=== PATIENT | female | born 2000 | race Caucasian/White ===

== ENCOUNTER 2023-01-26 19:58 | Outpatient (REF) | payer OTHER, SELFPAY ==
--- OUTSIDE RECORDS SUMMARY | 2023-01-27 10:11 | XMS_ITS | CCD ---
Author Name Unknown Address [address] [place] [address] Organization [facility] Care Team Providers Care Ios Architect Name Role Phone Kurt Cisneros Primary Care Physician [phone] VANCE, DR HERNANDEZ Admitting Unavailable VANCE, DR HERNANDEZ Attending Unavailable BLAYNE, DR HARTMAN Primary Care Unavailable VANCE, DR HERNANDEZ Consulting Unavailable BYRNEDALE, DR HARTMAN Admitting Unavailable BYRNEDALE, DR HARTMAN Attending Unavailable BYRNEDALE, DR HARTMAN Primary Care Unavailable BYRNEDALE, DR HARTMAN Consulting Unavailable Lauri Cohen Attending Unavailable Lauri Cohen Attending Unavailable Allergies Allergy Classification Reported Allergen(s) Allergy Type Date of Onset Reaction(s) Facility (4 sources) Sulfamethoxazole / Trimethoprim; Translations: [sulfamethoxazole-tr imethoprim] Drug Allergy Unknown (qualifier value) [facility] (1 source) Sulfamethoxazole / Trimethoprim Drug Allergy 0 [facility] Repository Medications Current Medications Medication Drug Class(es) Dates Sig (Normalized) Sig (Original) ciprofloxacin 3 mg/ml ophthalmic solution (1 source) Quinolone Antimicrobial Start: 01-06-2023 End: 01-11-2023 take 2 drop(s) into the eye(s) every six hours ciprofloxacin Opth 0.3% Bernice 2 drop(s), OPTH, q6hr for 5 day(s), 10 mL, Refill(s) 0, to the effected eye while awake, [facility], 162, cm, 01/06/23 10:12:00 EST, Height/Length Dosing, 110, kg, 01/06/23 10:12:00 EST, Weight Dosing Start Date: 01/06/23 Stop Date: 01/11/23 Status: Ordered dextromethorphan hydrobromide 15 mg / guaiFENesin 400 mg / pseudoephedrine hydrochloride 60 mg oral tablet (1 source) alpha-Adrenergic Agonist, Uncompetitive Y-fscuvf-X-asparta te Receptor Antagonist, Sigma-1 Agonist Start: 01-06-2023 take 1 tablet by mouth every six hours dextromethorphan/g uaiFENesin/pseudoe phedrine 15 mg-400 mg-60 mg oral tablet 1 tab(s), Oral, q6hr, 15 tab(s), Refill(s) 0, Pharmacist may substitute for similar if not available, [facility], 162, cm, 01/06/23 10:12:00 EST, Height/Length Dosing, 110, kg, 01/06/23 10:12:00 EST, Weight Dosing Start Date: 01/06/23 Status: Ordered Zofran ODT 4 mg Tab-Dis (1 source) Start: 07-13-2022 End: 07-16-2022 take 1 tablet by mouth every eight hours as needed for nausea Zofran ODT 4 mg Tab-Dis 4 mg = 1 tab(s), Oral, q8hr, PRN Nausea/Vomiting, X 3 day(s), # 9 tab(s), Refills(s) 0, Pharmacy: [facility], 162, cm, 07/13/22 10:40:00 EDT, Height/Length Dosing, 112, kg, 07/13/22 10:40:00 EDT, Weight Dosing Start Date: 07/13/22 Stop Date: 07/16/22 Status: Ordered Problems Active Problems Problem Classification Problem Date Documented Da te Episodic/Chronic Immunizations and screening for infectious disease (1 source) Contact with and (suspected) exposure to infections with a predominantly sexual mode of transmission; Translations: [CONTCT W EXPOS INFECT SEXUAL TRNSMS] Onset: 12-17-2021 Episodic Inflammation; infection of eye (except that caused by tuberculosis or sexually transmitteddisease) (1 source) Conjunctivitis; Translations: [Unspecified conjunctivitis] Onset: 01-06-2023 Episodic Other female genital disorders (4 sources) Other specified noninflammatory disorders of vagina; Translations: [OTH SPEC NONINFLAMMATORY D/O VAGINA] Onset: 12-14-2021 Episodic Other gastrointestinal disorders (1 source) Diarrhea; Translations: [Diarrhea, unspecified] Onset: 07-13-2022 Episodic Other lower respiratory disease (1 source) Cough; Translations: [Cough, unspecified] Onset: 01-06-2023 Episodic Other nutritional; endocrine; and metabolic disorders (1 source) Morbid obesity; Translations: [Morbid (severe) obesity due to excess calories] Onset: 07-13-2022 Chronic Other nutritional; endocrine; and metabolic disorders (1 source) Body mass index 40+ - severely obese; Translations: [Body mass index (BMI) 40.0-44.9, adult] Onset: 07-13-2022 Chronic Other upper respiratory infections (1 source) Acute upper respiratory infection; Translations: [Acute upper respiratory infection, unspecified] Onset: 07-13-2022 Episodic Unclassified (3 sources) CONTACT W/AND (SUSP) EXPOS COVID-19; Translations: [CONTACT W/AND (SUSP) EXPOS COVID-19] Onset: 12-19-2021 Past or Other Problems Problem Classification Problem Date Documented Da te Episodic/Chronic Unclassified (1 source) Exposure to 2019 novel coronavirus; Translations: [Contact with and (suspected) exposure to COVID19] Unclassified (1 source) CONTACT W/AND (SUSP) EXPOS COVID-19; Translations: [CONTACT W/AND (SUSP) EXPOS COVID-19] Onset: 12-15-2021 Results Test Name Value Interpretation Reference Range [facility] Family Medicine Office/Clini c Noteon 01-06-2023 Family Medicine Office/Clinic Note Chief Complaint congestion and possible pink eye HPI Staff 22 yr old female here for pink eye. pt states left eye was crusted shut this morning. Redness and itching this morning. pt also states cough and congestion Symptoms started- Tuesday Headache- no Body aches- yes Earache- mild Runny/stuffy nose- yes Problem with Smell- no Problem with Taste- no Sore throat- yes Cough- yes Scratchy tickly throat- yes Chest symptoms- no Lung Hx asthma, bronchitis, chest colds- no Fever/chills- no GI symptoms- no COVID exposure- no History of Present Illness Portions of this record may have been created with voice recognition artificial intelligence software, specifically [employer], [employer] and or Dragon Ambient Experience. Substitutions may have occurred due to the inherent limitations of voice recognition and artificial intelligence software. Staff hpi reviewed. Patient is a 22 yoF complaint of redness and itching to the left eye. States began today. Pt does wear glasses. No blurred vision double vision or change in vision. Patient also with cough and congestion. Patient has no other complaints or concerns. Patient with septra allergies. Review of Systems PHQ Score Initial Depression Screen Score: 0 SCORE Physical Exam Vitals & Measurements T: 36.8 ?C(Temporal Artery) HR: 88(Peripheral) BP: 116/78 SpO2: 99% HT: 64 in HT: 162 cm WT: 110 kg WT: 242 lb BMI: 41.91 General - alert no acute distress Skin - warm dry Head -normocephalic atraumatic Eye - PERRL, EOMI, erythematous left conjunctiva with discharge Cardiovascular - regular rate regular rhythm, no murmur, normal peripheral perfusion Respiratory - lungs clear to auscultation, nonlabored respirations, breath sounds equal Lymphatics - no lymphadenopathy Assessment/Plan 1. Conjunctivitis (H10.9: Unspecified conjunctivitis) Exam consistent with bacterial conjunctivitis. Will treat with antibiotic drops. Finish course. Discussed contagious nature, avoid touching eyes. May use warm washcloth to remove drainage or crusting. Prescription for cough medicine has also been provided. Advised conjunctivitis is less contagious after 24 hours of antibiotic drops. Follow up with PCP or eye doctor if not improving over next 3 days. Patient/parent verbalized understanding of treatment plan Ordered: ciprofloxacin ophthalmic, 2 drop(s), OPTH, q6hr for 5 day(s), 10 mL, Refill(s) 0, to the effected eye while awake, [facility], 162, cm, 01/06/23 10:12:00 EST, Height/Length Dosing, 110, kg, 01/06/23 10:12:00 EST, Weight Dosing dextromethorphan/guai fenesin/pseudoephedri ne, 1 tab(s), Oral, q6hr, 15 tab(s), Refill(s) 0, Pharmacist may substitute for similar if not available, [facility], 162, cm, 01/06/23 10:12:00 EST, Height/Length Dosing, 110, kg, 01/06/23 10:12:00 EST, Weight Dosing 2. Cough (R05.9: Cough, unspecified) Same as above. Follow-up With When Contact Information Kurt Cisneros DO [address] [place] [address]- Additional Instructions: Patient Education Bacterial Conjunctivitis, Adult Problem List/Past Medical History Ongoing No qualifying data Historical No qualifying data Procedure/Surgical History Cholecystectomy (2019), section. Medications ciprofloxacin Opth 0.3% Bernice, 2 drop(s), OPTH, q6hr dextromethorphan/guai FENesin/pseudoephedri ne 15 mg-400 mg-60 mg oral tablet, 1 tab(s), Oral, q6hr Allergies Septra (Unknown) Social History Alcohol - Denies Alcohol Use, 02/05/2021 Substance Abuse - Denies Substance Abuse, 02/05/2021 Tobacco - Denies Tobacco Use, 02/05/2021 Never (less than 100 in lifetime) Tobacco Use:. Never Smokeless Tobacco Use:., 01/06/2023 Family History Diabetes mellitus type 2: Mother. Immunizations Vaccine Date Status meningococcal conjugate vaccine 09/19/2018 Given diphtheria/pertussis, acel/tetanus adult 04/24/2013 Recorded meningococcal conjugate vaccine 04/24/2013 Recorded varicella virus vaccine 03/02/2006 Recorded measles/mumps/rubella virus vaccine 03/02/2006 Recorded poliovirus vaccine, inactivated 03/02/2006 Recorded diphtheria/pertussis, acel/tetanus ped 03/02/2006 Recorded influenza virus vaccine, inactivated 11/21/2003 Recorded poliovirus vaccine, inactivated 11/21/2003 Recorded poliovirus vaccine, inactivated 08/01/2002 Recorded diphtheria/pertussis, acel/tetanus ped 08/01/2002 Recorded measles/mumps/rubella virus vaccine 05/04/2002 Recorded haemophilus b conjugate (HbOC) vaccine 05/04/2002 Recorded varicella virus vaccine 02/09/2002 Recorded haemophilus b conjugate (HbOC) vaccine 2001 Recorded diphtheria/pertussis, acel/tetanus ped 2001 Recorded hepatitis B adult vaccine 2001 Recorded poliovirus vaccine, inactivated 2001 Recorded haemophilus b conjugate (HbOC) vaccine 2001 Recorded diphtheria/pertussis, acel/tetanus ped 2001 Recorded hepatitis B adult vaccine 2001 Rec (more content not included)... Normal [facility] Comment on above: Result Comment: Elec tronically Signed By: Michael Pedro PA-C, V.\.br\Date and Time Signed: 01/06/23 10:53 EST Patient Educationon 01-07-20 Patient Education Infectious Disease Bacterial Conjunctivitis, Adult Bacterial conjunctivitis is an infection of the clear membrane that covers the white part of the eye and the inner surface of the eyelid (conjunctiva). When the blood vessels in the conjunctiva become inflamed, the eye becomes red or pink. The eye often feels irritated or itchy. Bacterial conjunctivitis spreads easily from person to person (is contagious). It also spreads easily from one eye to the other eye. What are the causes? This condition is caused by bacteria. You may get the infection if you come into close contact with: ? A person who is infected with the bacteria. ? Items that are contaminated with the bacteria, such as a face towel, contact lens solution, or eye makeup. What increases the risk? You are more likely to develop this condition if: ? You are exposed to other people who have the infection. ? You wear contact lenses. ? You have a sinus infection. ? You have had a recent eye injury or surgery. ? You have a weak body defense system (immune system). ? You have a medical condition that causes dry eyes. What are the signs or symptoms? Symptoms of this condition include: ? Thick, yellowish discharge from the eye. This may turn into a crust on the eyelid overnight and cause your eyelids to stick together. ? Tearing or watery eyes. ? Itchy eyes. ? Burning feeling in your eyes. ? Eye redness. ? Swollen eyelids. ? Blurred vision. How is this diagnosed? This condition is diagnosed based on your symptoms and medical history. Your health care provider may also take a sample of discharge from your eye to find the cause of your infection. How is this treated? This condition may be treated with: ? Antibiotic eye drops or ointment to clear the infection more quickly and prevent the spread of infection to others. ? Antibiotic medicines taken by mouth (orally) to treat infections that do not respond to drops or ointments or that last longer than 10 days. ? Cool, wet cloths (cool compresses) placed on the eyes. ? Artificial tears applied 2?6 times a day. Follow these instructions at home: Medicines ? Take or apply your antibiotic medicine as told by your health care provider. Do not stop using the antibiotic, even if your condition improves, unless directed by your health care provider. ? Take or apply zzgh-zeg-dnazrpa and prescription medicines only as told by your health care provider. ? Be very careful to avoid touching the edge of your eyelid with the eye-drop bottle or the ointment tube when you apply medicines to the affected eye. This will keep you from spreading the infection to your other eye or to other people. Managing discomfort ? Gently wipe away any drainage from your eye with a warm, wet washcloth or a cotton ball. ? Apply a clean, cool compress to your eye for 10?20 minutes, 3?4 times a day. General instructions ? Do not wear contact lenses until the inflammation is gone and your health care provider says it is safe to wear them again. Ask your health care provider how to sterilize or replace your contact lenses before you use them again. Wear glasses until you can resume wearing contact lenses. ? Avoid wearing eye makeup until the inflammation is gone. Throw away any old eye cosmetics that may be contaminated. ? Change or wash your pillowcase every day. ? Do not share towels or washcloths. This may spread the infection. ? Wash your hands often with soap and water for at least 20 seconds and especially before touching your face or eyes. Use paper towels to dry your hands. ? Avoid touching or rubbing your eyes. ? Do not drive or use heavy machinery if your vision is blurred. Contact a health care provider if: ? You have a fever. ? Your symptoms do not get better after 10 days. Get help right away if: ? You have a fever and your symptoms suddenly get worse. ? You have severe pain when you move your eye. ? You have facial pain, redness, or swelling. ? You have a sudden loss of vision. Summary ? Bacterial conjunctivitis is an infection of the clear membrane that covers the white part of the eye and the inner surface of the eyelid (conjunctiva). ? Bacterial conjunctivitis spreads easily from eye to eye and from person to person (is contagious). ? Wash your hands often with soap and water for at least 20 seconds and especially before touching your face or eyes. Use paper towels to dry your hands. ? Take or apply your antibiotic medicine as told by your health care provider. Do not stop using the antibiotic even if your condition improves. ? Contact a health care provider if you have a fever or if your symptoms do not get better after 10 days. Get help right away if you have a sudden loss of vision. This information is not intended to replace advice given to you by your health care provider. Make sure you discuss any questions you have with your healt (more content not included)... Normal [facility] Patient Letter FTon 2022 Patient [place] [facility] [address], [facility] [place] [address] January 06, 2023 WILLIAMS HENRIQUEZ [address] [address] : 2000 Please excuse WILLIAMS HENRIQUEZ from work . Date and/or Time of Absence: From: 01/06 To: 01/08 May return to work on: 01/09 Restrictions: None Comments: Please excuse due to an acute illness. Provider Signature: Bryon Pedro PA-C [facility] [address]. [facility] [place] [address] [facility] Ambulatory Visit Summaryon 0 07-13-2022 Ambulatory Visit Summary WILLIAMS HENRIQUEZ :2000 Visit Date:07/13/2022 Ambulatory Visit Instructions Your Diagnosis Viral URI Diarrhea BMI 40.0-44.9, adult Morbid obesity Your Care Team Attending Physician - Lauri Cohen PA-C Primary Care Physician - Kurt Cisneros DO This Is Your Medications List ondansetron (Zofran ODT 4 mg Tab-Dis) Procedures Performed Cholecystectomy (2019), section. Discharge Vitals Temperature (Oral) 37.6 ?C Heart Rate (Peripheral) 112 Blood Pressure 108/62 Height 162 cm Height 64 in Weight 112 kg Weight 246.4 lb BMI 42.68 What to do next You Need to Schedule the Following Appointments Follow Up with Kurt Cisneros DO When: Where: [address] [place] [address]- Medications What How Much When Why Instructions New ondansetron (Zofran ODT 4 mg Tab-Dis) 1 Tablets By Mouth Every 8 hours as needed for Nausea/Vomiting Viral URI Diarrhea Duration: 3 Days Pickup at [facility] Pharmacy Information [facility] 1986: [address] [place], [place] [id number] [phone] Allergies Septra (Unknown) Education Materials BMI for Adults What is BMI? Body mass index (BMI) is a number that is calculated from a person's weight and height. BMI can help estimate how much of a person's weight is composed of fat. BMI does not measure body fat directly. Rather, it is an alternative to procedures that directly measure body fat, which can be difficult and expensive. BMI can help identify people who may be at higher risk for certain medical problems. What are BMI measurements used for? BMI is used as a screening tool to identify possible weight problems. It helps determine whether a person is obese, overweight, a healthy weight, or underweight. BMI is useful for: ? Identifying a weight problem that may be related to a medical condition or may increase the risk for medical problems. ? Promoting changes, such as changes in diet and exercise, to help reach a healthy weight. BMI screening can be repeated to see if these changes are working. How is BMI calculated? BMI involves measuring your weight in relation to your height. Both height and weight are measured, and the BMI is calculated from those numbers. This can be done either in [place] or metric measurements. Note that charts and online BMI calculators are available to help you find your BMI quickly and easily without having to do these calculations yourself. To calculate your BMI in [place] measurements: 1. Measure your weight in pounds (lb). 2. Multiply the number of pounds by 703. ? For example, for a person who weighs 180 lb, multiply that number by 703, which equals 126,540. 3. Measure your height in inches. Then multiply that number by itself to get a measurement called inches squared. ? For example, for a person who is 70 inches tall, the inches squared measurement is 70 inches x 70 inches, which equals 4,900 inches squared. 4. Divide the total from step 2 (number of lb x 703) by the total from step 3 (inches squared): 126,540 ? 4,900 = 25.8. This is your BMI. To calculate your BMI in metric measurements: 1. Measure your weight in kilograms (kg). 2. Measure your height in meters (m). Then multiply that number by itself to get a measurement called meters squared. ? For example, for a person who is 1.75 m tall, the meters squared measurement is 1.75 m x 1.75 m, which is equal to 3.1 meters squared. 3. Divide the number of kilograms (your weight) by the meters squared number. In this example: 70 ? 3.1 = 22.6. This is your BMI. What do the results mean? BMI charts are used to identify whether you are underweight, normal weight, overweight, or obese. The following guidelines will be used: ? Underweight: BMI less than 18.5. ? Normal weight: BMI between 18.5 and 24.9. ? Overweight: BMI between 25 and 29.9. ? Obese: BMI of 30 or above. Keep these notes in mind: ? Weight includes both fat and muscle, so someone with a muscular build, such as an athlete, may have a BMI that is higher than 24.9. In cases like these, BMI is not an accurate measure of body fat. ? To determine if excess body fat is the cause of a BMI of 25 or higher, further assessments may need to be done by a health care provider. ? BMI is usually interpreted in the same way for men and women. Where to find more information For more information about BMI, including tools to quickly calculate your BMI, go to these websites: ? Centers for Disease Control and Prevention: www.cdc.gov ? [place] Heart Association: www.heart.org ? National Heart, Lung, and Blood [place]: www.nhlbi.nih.gov Summary ? Body mass index (BMI) is a number that is calculated from a person's weight and height. ? BMI may help estimate how much of a person's weight is composed of fat. BMI can help identify those (more content not included)... Normal [facility] Family Medicine Office/[place] [place] 07-13-2022 Family Medicine Office/Clinic Note Chief Complaint Fatigue HPI Staff Williams is a 22 y.o. female here exhaustion She states she was at work yesterday and felt extremely nausea without vomiting. She has body aches and dizziness. She state loss of appetite the last two days. She Has diarrhea. She denies abdominal pain other than cramping from starting menses. She has a cough that is productive and runny nose She states she feels warm but no confirmed temperature She denies sharp sore throat or headache related to sickness. Throat is irritated from coughing. 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 Portions of this record have been created with voice recognition software. Occasional wrong-word or ?cinhn-i-rssc? substitutions may have occurred due to the inherent limitations of voice recognition software. 22 yo female presents today with cc of exhaustion. Pt states she was at work yesterday and felt extremely nauseated. Denies vomiting. She states body aches and dizziness. Loss of appetite x 2 days. She states she has had diarrhea, denies abdominal pain. She has started her menstrual cycle. Denies chance of . States she does get diarrhea, with her menses, but feels it is related to a possible virus. She notes a runny nose, and cough, cough is occasionally productive of phlegm. Denies any headache or sore throat. No recent illness, or travel. Did not test at home for covid. Denies exposure that she is aware of. She is around small children, as she works a [employer]. She took tylenol yesterday with some relief. Pt states she would have just stayed, home but she needs a work note. Review of Systems PHQ Score Initial Depression Screen Score: 1 Physical Exam Vitals & Measurements T: 37.6 ?C(Oral) HR: 112(Peripheral) RR: 98 BP: 108/62 HT: 64 in HT: 162 cm WT: 112 kg WT: 246.4 lb BMI: 42.68 General: morbidly obese female, no acute distress Eyes: Pupils equal, round, and reactive to light. Conjunctivae and sclerae normal, and extraocular movements intact Ears: No deformity or lesion of external ear. Canals and TM appear normal bilaterally. TM?s intact, not inflamed, with normal light reflex. Hearing grossly normal to conversational speech Nose: No deformity, discharge, inflammation, or lesions Mouth: Mucous membranes moist. Normal oropharynx, and posterior pharynx without lesions or exudates. Tongue normal Neck: no adenopathy Lungs: clear to auscultation throughout, no wheezing, no rales. No respiratory distress Cardio: regular rate and rhythm, no murmur Abdomen: soft, nondistended, BS normal and active x4. Denies tenderness. No guarding or grimacing Musculoskeletal: not assessed Extremity: not assessed Neurologic: not assessed Skin: No rashes, ulcerations, or suspicious lesions Mental Status: Alert and oriented x3. Normal mood and affect Assessment/Plan pt was offered rapid covid testing, however declines at this time. 1. Viral URI (J06.9: Acute upper respiratory infection, unspecified) Discussed exam and hx are consistent with viral illness. Advised of typical duration. Discussed antibiotics unfortunately do not treat viral illnesses, it will take time to run course- usually 7-14 days. Fluids/rest encouraged, PRN tylenol/ibuprofen for any pain. May use mucinex for symptomatic tx. Follow up with PCP if not improving over next 7-10 days or significantly worsening symptoms. Patient and/or parent verbalized understanding of tx plan. Ordered: ondansetron, 4 mg = 1 tab(s), Oral, q8hr, PRN Nausea/Vomiting, X 3 day(s), # 9 tab(s), Refills(s) 0, Pharmacy: [facility], 162, cm, 07/13/22 10:40:00 EDT, Height/Length Dosing, 112, kg, 07/13/22 10:40:00 EDT, Weight Dosing 2. Diarrhea (R19.7: Diarrhea, unspecified) Continue bland diet such as bananas rice applesauce and toast until both tolerating normal diet continue fluid intake electrolyte beverages. A prescription for Zofran, 1 tablet dissolved under the tongue every 8 hours as needed for nausea or vomiting was sent to the pharmacy for you. Ordered: ondansetron, 4 mg = 1 tab(s), Oral, q8hr, PRN Nausea/Vomiting, X 3 day(s), # 9 tab(s), Refills(s) 0, Pharmacy: [facility], 162, cm, 07/13/22 10:40:00 EDT, Height/Length Dosing, 112, kg, 07/13/22 10:40:00 EDT, Weight Dosing 3. BMI 40.0-44.9, adult (Z68.41: Body mass index [BMI] 40.0-44.9, adult) The standard range for ages 18 and older is >=18.5 and < 25 kg/m2. Your BMI today was above this range, this falls in the overweight to obese category and there are medical benefits to weight loss. We can offer counselling, referral, and/or medical support in addressing this problem. Your BMI and weight management will be followed at subsequent visits. 4. Morbid obesity (E66.01: Morbid (severe) obesity due to excess calories) Discussed healthy diet an (more content not included)... Normal [facility] Comment on above: Result Comment: Elec tronically Signed By: Noel MELARA, Lauri Rock\.br\Date and Time Signed: 07/13/22 10:59 EDT Patient Educationon 07-14-19 Patient Education Infectious Disease Diarrhea, Adult Diarrhea is frequent loose and watery bowel movements. Diarrhea can make you feel weak and cause you to become dehydrated. Dehydration can make you tired and thirsty, cause you to have a dry mouth, and decrease how often you urinate. Diarrhea typically lasts 2?3 days. However, it can last longer if it is a sign of something more serious. It is important to treat your diarrhea as told by your health care provider. Follow these instructions at home: Eating and drinking Follow these recommendations as told by your health care provider: ? Take an oral rehydration solution (ORS). This is an cnjw-wzz-rwwussr medicine that helps return your body to its normal balance of nutrients and water. It is found at pharmacies and retail stores. ? Drink plenty of fluids, such as water, ice chips, diluted fruit juice, and low-calorie sports drinks. You can drink milk also, if desired. ? Avoid drinking fluids that contain a lot of sugar or caffeine, such as energy drinks, sports drinks, and soda. ? Eat bland, ipcb-qm-tqzszo foods in small amounts as you are able. These foods include bananas, applesauce, rice, lean meats, toast, and crackers. ? Avoid alcohol. ? Avoid spicy or fatty foods. Medicines ? Take ifmo-ehz-ndiovxa and prescription medicines only as told by your health care provider. ? If you were prescribed an antibiotic medicine, take it as told by your health care provider. Do not stop using the antibiotic even if you start to feel better. General instructions ? Wash your hands often using soap and water. If soap and water are not available, use a hand artist blacksmith. Others in the household should wash their hands as well. Hands should be washed: ? After using the toilet or changing a diaper. ? Before preparing, cooking, or serving food. ? While caring for a sick person or while visiting someone in a hospital. ? Drink enough fluid to keep your urine pale yellow. ? Rest at home while you recover. ? Watch your condition for any changes. ? Take a warm bath to relieve any burning or pain from frequent diarrhea episodes. ? Keep all follow-up visits as told by your health care provider. This is important. Contact a health care provider if: ? You have a fever. ? Your diarrhea gets worse. ? You have new symptoms. ? You cannot keep fluids down. ? You feel light-headed or dizzy. ? You have a headache. ? You have muscle cramps. Get help right away if: ? You have chest pain. ? You feel extremely weak or you faint. ? You have bloody or black stools or stools that look like tar. ? You have severe pain, cramping, or bloating in your abdomen. ? You have trouble breathing or you are breathing very quickly. ? Your heart is beating very quickly. ? Your skin feels cold and clammy. ? You feel confused. ? You have signs of dehydration, such as: ? Dark urine, very little urine, or no urine. ? Cracked lips. ? Dry mouth. ? Sunken eyes. ? Sleepiness. ? Weakness. Summary ? Diarrhea is frequent loose and sometimes watery bowel movements. Diarrhea can make you feel weak and cause you to become dehydrated. ? Drink enough fluids to keep your urine pale yellow. ? Make sure that you wash your hands after using the toilet. If soap and water are not available, use hand artist blacksmith. ? Contact a health care provider if your diarrhea gets worse or you have new symptoms. ? Get help right away if you have signs of dehydration. This information is not intended to replace advice given to you by your health care provider. Make sure you discuss any questions you have with your health care provider. Document Revised: 08/05/2021 Document Reviewed: 08/05/2021 [employer] Patient Education ? 2022 [employer] Upper Respiratory Infection, Adult An upper respiratory infection (URI) is a common viral infection of the nose, throat, and upper air passages that lead to the lungs. The most common type of URI is the common cold. URIs usually get better on their own, without medical treatment. What are the causes? A URI is caused by a virus. You may catch a virus by: ? Breathing in droplets from an infected person's cough or sneeze. ? Touching something that has been exposed to the virus (is contaminated) and then touching your mouth, nose, or eyes. What increases the risk? You are more likely to get a URI if: ? You are very young or very old. ? You have close contact with others, such as at work, school, or a health care facility. ? You smoke. ? You have long-term (chronic) heart or lung disease. ? You have a weakened disease-fighting system (immune system). ? You have nasal allergies or asthma. ? You are experiencing a lot of stress. ? You have poor nutrition. What are the signs or symptoms? A URI usually involves some of the following symptoms: ? Runny or stuffy (congested) nose. ? (more content not included)... Normal [facility] Patient Letter FTon 2022 Patient [place] [facility] [address], [place] [address] [phone] July 13, 2022 WILLIAMS HENRIQUEZ [address] [place] [address] : 2000 Please excuse WILLIAMS HENRIQUEZ from work . Date and/or Time of Absence: From: 07/12/2022 To: 07/14/2022 May return to work on: 07/14/2022 Restrictions: None Comments: Please excuse due to an acute illness. Provider Signature: Lauri Cohen PA-C Physician Water Purifier [address] [place] [address] [place] [address] [facility] CHLAMYDIA/GONOCOCCUS GREGORY (SW AB/URINE/PAPon 12-15-2021 Chlamydia trachomatis, GREGORY Negative Normal Negative [facility] Comment on above: Performed By: #### C T/NGNA #### [facility] [address] [place], [place] [address] Dr. Sil Shane Neisseria gonorrhoeae, GREGORY Negative Normal Negative [facility] Comment on above: Performed By: #### C T/NGNA #### [facility] [address] [place], [place] [address] Dr. Sil Shane Covid-19 PCR (CVDTBH)on SARS-CoV-2 (COVID-19) RNA GREGORY+probe Ql (Unsp spec) Not detected Normal NOT DETECTED [facility] Comment on above: Result Comment: This test is not yet approved or cleared by the [place] FDA. When there are no FDA-approved or cleared tests available, and other criteria are met, FDA can make tests available under an emergency access mechanism called an Emergency Use Authorization (EUA). The EUA for this test is supported by the Sales Donor Recruitment Representative of Health and Human Service's (HHS's) declaration that circumstances exist to justify the emergency use of in vitro diagnostics for the detection and/or diagnosis of the virus that causes COVID-19. This EUA will remain in effect (meaning this test can be used) for the duration of the COVID-19 declaration justifying emergency of IVDs, unless it is terminated or revoked by FDA (after which the test may no longer be used). When diagnostic testing is negative, the possibility of a false negative should be considered in the context of a patient's recent exposures and the presence of clinical signs and symptoms consistent with SARS-CoV-2. Performed By: #### C VDTBH #### [facility] [address] [place], [place] [address] Dr. Sil Shane HEPATITIS PANEL, ACUTEon HBsAg Screen Negative Normal Negative [facility] Comment on above: Performed By: #### H EPACUT #### [facility] [address] [place] [address] [address] Sil Shane HCV AB <0.1 Normal 0.0-0.9 [facility] Comment on above: Performed By: #### H EPACUT #### [facility] [address] [address] [address] Sil Shane Hep A Ab, IgM Negative Normal Negative [facility] Comment on above: Performed By: #### H EPACUT #### [facility] [address] [address] [address] Sil Shane Hep B Core Ab, IgM Negative Normal Negative [facility] Comment on above: Performed By: #### H EPACUT #### [facility] [address] [address] [address] Sil Shane Interpretation: Comment Normal [facility] Comment on above: Result Comment: Nega tive Not infected with HCV, unless recent infection is suspected or other evidence exists to indicate HCV infection. Performed By: #### H EPACUT #### [facility] [address] [address] [address] Sil Shane HERPES SIMPLEX 1/2 IGGon HSV 1 IgG, Type Spec <0.91 Normal 0.00-0.90 [facility] Comment on above: Result Comment: Nega tive <0.91 Equivocal 0.91 - 1.09 Positive >1.09 Note: Negative indicates no antibodies detected to HSV-1. Equivocal may suggest early infection. If clinically appropriate, retest at later date. Positive indicates antibodies detected to HSV-1. Performed By: #### H SV IGG #### [facility] [address] [address] [address] Sil Shane HSV 2 IgG Type Spec <0.91 Normal 0.00-0.90 [facility] Comment on above: Result Comment: Nega tive <0.91 Equivocal 0.91 - 1.09 Positive >1.09 Note: Negative indicates no HSV-2 antibodies detected. Positive indicates HSV-2 antibodies detected. Equivocal and low positive HSV-2 screens (Index 0.91-5.00) may be false positive and are reflexed to supplemental testing in accordance with CDC guidelines. Performed By: #### H SV IGG #### [facility] [address] [place] [address] Dr. Sil Shane HIV 1 AND 2 WITH REFLEXon HIV Screen 4th Generation wRfx Non-Reactive Normal Non Reactive [facility] Comment on above: Result Comment: HIV Negative HIV-1/HIV-2 antibodies and HIV-1 p24 antigen were NOT detected. There is no laboratory evidence of HIV infection. Performed By: #### H IV12 #### [facility] [address] [place] [address] Dr. Sil Shane RPR QUANTon 12-15-2021 Rapid Plasma Reagin, Quant Non-Reactive Normal NonRea<1:1 [facility] Comment on above: Result Comment: Plea se Note: This test does not meet current guidelines for screening and diagnosis of syphilis. This test is intended for following treatment response in patients being treated for syphilis infection. To screen for syphilis infection, a reflex cascade that includes both RPR and a treponema-specific assay should be utilized, such as Treponema pallidum (Syphilis) Screening [place] (385189) or Rapid Plasma Reagin (RPR) Test With Reflex to Quantitative RPR and Confirmatory Treponema pallidum Antibodies (855952). Performed By: #### R PRQ #### [facility] [address] [place] [address] Dr. Sil Shane VAGINITIS/VAGINOSIS DNA PROB Andrew 12-15-2021 Lupe species Negative Normal Negative [facility] Comment on above: Performed By: #### V AGINT #### [facility] [address] [place] [address] Dr. Sil Shane Gardnerella vaginalis Negative Normal Negative [facility] Comment on above: Performed By: #### V AGINT #### [facility] [address] [place] [address] Dr. Sil Shane Trichomonas vaginalis Negative Normal Negative [facility] Comment on above: Performed By: #### V AGINT #### [facility] [address] [address] [address] Sil Shane Alkaline Phosphataseon 12-05 ALP [Catalytic activity/Vol] 42 U/L Normal 32-92 [facility] Comment on above: Performed By: #### A MY, AST, HCGQUAL, BILTD, LIPASE, ALP #### [facility] [address] [id number] [facility] Amylaseon 12-05-2020 Amylase [Catalytic activity/Vol] 54 U/L Normal 28-100 [facility] Comment on above: Performed By: #### A MY, AST, HCGQUAL, BILTD, LIPASE, ALP #### [facility] [address] Aspartate Amino Transferaseo n 12-05-2020 AST [Catalytic activity/Vol] 14 U/L Normal 10-42 [facility] Comment on above: Performed By: #### A MY, AST, HCGQUAL, BILTD, LIPASE, ALP #### [facility] [address] Bilirubin, Total and Directo n 12-05-2020 Bilirubin [Mass/Vol] 0.3 mg/dL Normal 0.3-1.2 [facility] Comment on above: Performed By: #### A MY, AST, HCGQUAL, BILTD, LIPASE, ALP #### [facility] [address] Bilirubin,Indirect Not performed Normal [facility] Comment on above: Performed By: #### A MY, AST, HCGQUAL, BILTD, LIPASE, ALP #### [facility] [address] Bilirubin.indirect [Mass/Vol] mg/dL Normal 0.0-0.4 [facility] Comment on above: Performed By: #### A MY, AST, HCGQUAL, BILTD, LIPASE, ALP #### [facility] [address] HCG,Qualitative Serumon 11-08 HCG,Qualitative Serum Negative Normal [facility] Comment on above: Result Comment: PERF ORMED BY: [facility] [address] [place] [address] PATHOLOGIST SALES ORDER PROCESSOR RADHA MILLS M.D. Performed By: #### A MY, AST, HCGQUAL, BILTD, LIPASE, ALP #### [facility] [address] [facility] [place] [address] [facility] 12-05-2020 L - -------- Specimen: [id number] Received: 12/08/20 Status: JENNIFER Reynaldo Num: [id number] Spec Type: Surgical Subm Dr: Fausto Burnett DO Tissues: A Gallbladder (GALLBLADDER) Procedures: HE Stain, Gross/Micro L3 -------- Patient Age/Sex Location Account Attending Physician -------- Williams Henriquez /F [place] [id number] Fausto Burnett DO -------- SPEC NUM: [id number] RECD: 12/08/20 STATUS: JENNIFER JACOBS NUM: [id number] JOSEFINA: 12/05/20- DR: Fausto Burnett DO ENTERED: 12/08/20 [facility] DR: SPEC TYPE: Surgical DEPT: S ORDERED: HE Stain, Gross/Micro L3 ORDERED: HE Stain, Gross/Micro L3 Pathological Diagnosis Gallbladder, cholecystectomy: - Gallbladder with no significant pathologic findings. - One benign reactive lymph node with sinus histiocytosis (0/1). - No gallstones identified Clinical Information Cholelithiasis Gross Description Received in formalin labeled with the patient's name, number and gallbladder is a 5.7 x 2.5 x 1.4 cm focally disrupted gallbladder. The serosa is whittaker-henderson and wrinkled, while the adventitia is finely roughened. The specimen is opened to reveal a whittaker, granular and flattened appearing mucosa with an average wall thickness of 0.4 cm. No lesions or choleliths are grossly identified. A 0.4 cm periductal lymph node is identified. The specimen container is filtered and no choleliths are identified. Print Traffic Manager sections are submitted in one cassette labeled A1. (SM/YJ) Microscopic Description One glass slide with H E stained material has been examined. The microscopic findings support the above pathologic diagnosis. -------- Specimen: [id number] Received: 12/08/20 Status: JENNIFER Jacobs Num: [id number] Spec Type: Surgical Subm Dr: Fausto Burnett DO Tissues: A Gallbladder (GALLBLADDER) Procedures: HE Stain, Gross/Micro L3 -------- Patient: Williams Henriquez [id number] (Continued) -------- Specimen: [id number] Received: 12/08/20 (Continued) Signed (signature on file) Elodia Raya MD 12/09/20 1528 -------- Specimen: [id number] Received: 12/08/20 Status: JENNIFER Jacobs Num: [id number] Spec Type: Surgical Subm Dr: Fausto Burnett DO Tissues: A Gallbladder (GALLBLADDER) Procedures: HE Stain, Gross/Micro L3 -------- Patient: Williams Henriquez [id number] (Continued) -------- Specimen: [id number] Received: 12/08/20 (Continued) CPT Codes 63612 -------- -------- Specimen: [id number] Received: 12/08/20 Status: JENNIFER Jacobs Num: [id number] Spec Type: Surgical Subm Dr: Fausto Burnett DO Tissues: A Gallbladder (GALLBLADDER) Procedures: HE Stain, Gross/Micro L3 -------- Patient: Williams Henriquez [id number] (Continued) -------- Signed (signature on file) Elodia Raya MD 12/09/20 1528 Normal [facility] Lipaseon 12-05-2020 Lipase [Catalytic activity/Vol] 25.0 U/L Normal 22-51 [facility] Comment on above: Performed By: #### A MY, AST, HCGQUAL, BILTD, LIPASE, ALP #### [facility] [address] [id number] [facility] COVID-19 [facility] 12-03-2020 SARS-CoV-2 (COVID-19) RNA GREGORY+probe Ql (Unsp spec) Negative Normal Negative [facility] Comment on above: Order Comment: Healt hcare Worker?: N Result Comment: Testing for SARS-CoV-2 by RT-PCR This test was developed and its performance characteristics determined by [employer]) and validated at the [facility]. This test has not been FDA cleared or approved. This test has been authorized by FDA under an Emergency Use Authorization (EUA). This test has been validated in accordance with the FDA's Guidance Document (Policy for Diagnostics Testing in Laboratories Certified to Perform High Complexity Testing under CLIA prior to Emergency Use Authorization for Coronavirus Disease-2019 during the Public Health Emergency) issued on May 10, 2019. This test is only authorized for the duration of time the declaration that circumstances exist justifying the authorization of the emergency use of in vitro diagnostic tests for detection of SARS-CoV-2 virus and/or diagnosis of COVID-19 infection under section 564(b)(1) of the Act, 21 U.S.C. 360bbb-3(b)(1), unless the authorization is terminated or revoked sooner. PERFORMED BY: [facility] [address] [id number] PATHOLOGIST SALES ORDER PROCESSOR RADHA MILLS M.D. Performed By: #### C OVID 19 [facility] #### [facility] [address] HCG,Urineon 08-26-2020 Beta HCG ( test) Ql (U) Negative Normal [facility] Comment on above: Result Comment: PERF ORMED BY: [address] [place] [address] PATHOLOGIST SALES ORDER PROCESSOR RADHA MILLS M.D. Performed By: #### U HCG #### [facility] [address] [place] [address] [place] 08-26-2020 L - -------- Specimen: [id number] Received: 08/27/20 Status: JENNIFER Jacobs Num: [id number] Spec Type: Surgical Subm Dr: Juan Antonio MD Tissues: A Duodenum - Biopsy (DUODENUM BX) Procedures: HE Stain/2, Gross/Micro L4 -------- Patient Age/Sex Location Account Attending Physician -------- CassandraWilliams M / [id number] Juan Antonio MD -------- SPEC NUM: [id number] RECD: 08/27/20 STATUS: JENNIFER JACOBS NUM: [id number] JOSEFINA: 08/26/20- SUBM DR: Juan Antonio MD ENTERED: 08/27/[address]: NOELLE TYPE: Surgical DEPT: S ENTERED BY: [id number] RECV BY: [id number] ORDERED: HE Stain/2, Gross/Micro L4 ORDERED: HE Stain/2, Gross/Micro L4 Pathological Diagnosis Duodenum, biopsy: - Duodenal mucosa with mild villous edema, no significant pathologic findings. - No villous atrophy or intraepithelial lymphocytosis identified. Clinical Information Dyspepsia Gross Description Received in formalin labeled with the patient's name, number and duodenum biopsies rule out celiac is a 0.5 cm whittaker tissue fragment. Entirely submitted in one cassette labeled A1. (SM/YJ) Microscopic Description Two glass slides with H E stained material have been examined. The microscopic findings support the above pathologic diagnosis. CPT Codes 60071 -------- -------- Specimen: [id number] Received: 08/27/20 Status: JENNIFER Jacobs Num: [id number] Spec Type: Surgical Subm Dr: Juan Antonio MD Tissues: A Duodenum - Biopsy (DUODENUM BX) Procedures: HE Stain/2, Gross/Micro L4 -------- Patient: Williams Henriquez [id number] (Continued) -------- Signed (signature on file) Elodia Raya MD 08/28/20 1503 Normal [facility] COVID-19 [facility] 08-22-2020 SARS-CoV-2 (COVID-19) RNA GREGORY+probe Ql (Unsp spec) Negative Normal Negative [facility] Comment on above: Order Comment: Healt hcare Worker?: N Result Comment: Testing for SARS-CoV-2 by RT-PCR This test was developed and its performance characteristics determined by [employer]) and validated at the [facility]. This test has not been FDA cleared or approved. This test has been authorized by FDA under an Emergency Use Authorization (EUA). This test has been validated in accordance with the FDA's Guidance Document (Policy for Diagnostics Testing in Laboratories Certified to Perform High Complexity Testing under CLIA prior to Emergency Use Authorization for Coronavirus Disease-2019 during the Public Health Emergency) issued on May 10, 2019. This test is only authorized for the duration of time the declaration that circumstances exist justifying the authorization of the emergency use of in vitro diagnostic tests for detection of SARS-CoV-2 virus and/or diagnosis of COVID-19 infection under section 564(b)(1) of the Act, 21 U.S.C. 360bbb-3(b)(1), unless the authorization is terminated or revoked sooner. PERFORMED BY: [place] [id number] PATHOLOGIST SALES ORDER PROCESSOR RADHA MILLS M.D. Performed By: #### C OVID 19 [facility] #### [address] Vital Signs Date Time Vital Sign Value Performing Clinician Facility 01-06-2023 10:09-0500 Blood Pressure Location Lauri Sainiey [facility] 01-06-2023 10:09-0500 Body temperature 98.24 [degF] Lauri AbraResto [facility] 01-06-2023 10:09-0500 Diastolic blood pressure 78 mm[Hg] Lauri Noel [facility] 01-06-2023 10:09-0500 Heart rate 88 /min Lauri AbraResto [facility] 01-06-2023 10:09-0500 SaO2% (BldA) [Mass fraction] 99 % Lauri AbraResto [facility] 01-06-2023 10:09-0500 Systolic blood pressure 116 mm[Hg] Lauri Noel [facility] 07-13-2022 10:35-0400 Blood Pressure Location Lauri Free[employer]el [facility] 07-13-2022 10:35-0400 Body temperature 99.68 [degF] Lauri Cohen [facility] 07-13-2022 10:35-0400 Diastolic blood pressure 62 mm[Hg] Lauri Cohen [facility] 07-13-2022 10:35-0400 Heart rate 112 /min Lauri Cohen [facility] 07-13-2022 10:35-0400 SaO2% (BldA) [Mass fraction] 98 % Lauri Cohen [facility] 07-13-2022 10:35-0400 Systolic blood pressure 108 mm[Hg] Lauri Cohen [facility] Encounters Encounter Date Encounter Type Care Provider Facility Start: 01-06-2023 End: 01-07-2023 ambulatory Lauri LynseyUziel Cohen Facility:[facility] Start: 01-06-2023 End: 01-06-2023 Patient encounter procedure Lauri MUziel Cohen [facility] Start: 07-13-2022 End: 07-14-2022 ambulatory Lauri LynseyUziel Cohen Facility:[facility] [place] Start: 07-13-2022 End: 07-13-2022 Patient encounter procedure Lauri MUziel Noel [facility] Start: 12-15-2021 End: 12-15-[address] KURT CISNEROS Facility:[facility] Start: 12-14-2021 End: 12-14-[address] DAVID WOODARD Facility:[facility] Start: 04-23-2021 End: 07-23-2021 Patient encounter procedure Kurt Cisneros [facility] Procedures Date Procedure Procedure Detail Performing Clinician Start: 02-07-2018 Cholecystectomy Lauri cabreraoh section Lauri levine Immunizations Immunization Date Immunization Notes Care Provider Ria fausto 09-19-2018 meningococcal polysaccharide (groups A, C, Y and W-135) diphtheria toxoid conjugate vaccine (MCV4P) [facility] 04-24-2013 meningococcal ACWY vaccine, unspecified formulation Kurt [facility] 04-24-2013 tetanus toxoid, redu carie diphtheria toxoid, and acellular pertussis vaccine, adsorbed [facility] 03-02-2006 diphtheria, tetanus toxoids and acellular pertussis vaccine [facility] 03-02-2006 measles, mumps and rubella virus vaccine Kurt [facility] 03-02-2006 poliovirus vaccine, unspecified formulation [facility] 03-02-2006 varicella virus vaccine [facility] 11-21-2003 influenza virus vacc ine, unspecified formulation Kurt [facility] 11-21-2003 poliovirus vaccine, unspecified formulation [facility] 08-01-2002 diphtheria, tetanus toxoids and acellular pertussis vaccine [facility] 08-01-2002 poliovirus vaccine, unspecified formulation [facility] 05-04-2002 haemophilus influenz ae type b vaccine, HbOC conjugate Kurt [facility] 05-04-2002 measles, mumps and rubella virus vaccine [facility] 02-09-2002 varicella virus vaccine [facility] 2001 diphtheria, tetanus toxoids and acellular pertussis vaccine [facility] 2001 haemophilus influenz ae type b vaccine, HbOC conjugate [facility] 2001 diphtheria, tetanus toxoids and acellular pertussis vaccine [facility] 2001 haemophilus influenz ae type b vaccine, HbOC conjugate [facility] 2001 hepatitis B vaccine, adult dosage [facility] 2001 poliovirus vaccine, unspecified formulation [facility] 2001 diphtheria, tetanus toxoids and acellular pertussis vaccine [facility] 2001 haemophilus influenz ae type b vaccine, HbOC conjugate [facility] 2001 hepatitis B vaccine, adult dosage [facility] 2001 poliovirus vaccine, unspecified formulation [facility] 2001 hepatitis B vaccine, adult dosage [facility] Payers Date Payer Category Payer Medicaid [id number] 2001 Unknown [id number] 2001 Unknown [id number] 2001 Unknown [id number] 2001 Unknown [id number] 1959 Unknown [id number] 1959 Unknown [id number] Social History Date Type Detail Facility Tobacco smoking status No Smokin g Status Entered [facility] Sex Assigned At Female [facility] Start: 07-13-2022 End: 01-06-2023 Tobacco smoking status Never smoked tobacco (finding) [facility] Tobacco smoking status Never [facility] Functional Status Date Assessment Result Facility 01-06-2023 Functional Status N/A [facility] 07-13-2022 Functional Status N/A [facility] Hospital Discharge instructions 01-06-2023 Note Date & Type Note Facility 01-06-2023 Hospital Discharg e instructions Patient Education 01/06/2023 10:52:21 Bacterial Conjunctivitis, Adult Bacterial Conjunctivitis, Adult Bacterial conjunctivitis is an infection of the clear membrane that covers the white part of the eye and the inner surface of the eyelid (conjunctiva). When the blood vessels in the conjunctiva become inflamed, the eye becomes red or pink. The eye often feels irritated or itchy. Bacterial conjunctivitis spreads easily from person to person (is contagious). It also spreads easily from one eye to the other eye. What are the causes? This condition is caused by bacteria. You may get the infection if you come into close contact with: A person who is infected with the bacteria. Items that are contaminated with the bacteria, such as a face towel, contact lens solution, or eye makeup. What increases the risk? You are more likely to develop this condition if: You are exposed to other people who have the infection. You wear contact lenses. You have a sinus infection. You have had a recent eye injury or surgery. You have a weak body defense system (immune system). You have a medical condition that causes dry eyes. What are the signs or symptoms? Symptoms of this condition include: Thick, yellowish discharge from the eye. This may turn into a crust on the eyelid overnight and cause your eyelids to stick together. Tearing or watery eyes. Itchy eyes. Burning feeling in your eyes. Eye redness. Swollen eyelids. Blurred vision. How is this diagnosed? This condition is diagnosed based on your symptoms and medical history. Your health care provider may also take a sample of discharge from your eye to find the cause of your infection. How is this treated? This condition may be treated with: Antibiotic eye drops or ointment to clear the infection more quickly and prevent the spread of infection to others. Antibiotic medicines taken by mouth (orally) to treat infections that do not respond to drops or ointments or that last longer than 10 days. Cool, wet cloths (cool compresses) placed on the eyes. Artificial tears applied 2 6 times a day. Follow these instructions at home: Medicines Take or apply your antibiotic medicine as told by your health care provider. Do not stop using the antibiotic, even if your condition improves, unless directed by your health care provider. Take or apply inwl-ojd-wfpswtw and prescription medicines only as told by your health care provider. Be very careful to avoid touching the edge of your eyelid with the eye-drop bottle or the ointment tube when you apply medicines to the affected eye. This will keep you from spreading the infection to your other eye or to other people. Managing discomfort Gently wipe away any drainage from your eye with a warm, wet washcloth or a cotton ball. Apply a clean, cool compress to your eye for 10 20 minutes, 3 4 times a day. General instructions Do not wear contact lenses until the inflammation is gone and your health care provider says it is safe to wear them again. Ask your health care provider how to sterilize or replace your contact lenses before you use them again. Wear glasses until you can resume wearing contact lenses. Avoid wearing eye makeup until the inflammation is gone. Throw away any old eye cosmetics that may be contaminated. Change or wash your pillowcase every day. Do not share towels or washcloths. This may spread the infection. Wash your hands often with soap and water for at least 20 seconds and especially before touching your face or eyes. Use paper towels to dry your hands. Avoid touching or rubbing your eyes. Do not drive or use heavy machinery if your vision is blurred. Contact a health care provider if: You have a fever. Your symptoms do not get better after 10 days. Get help right away if: You have a fever and your symptoms suddenly get worse. You have severe pain when you move your eye. You have facial pain, redness, or swelling. You have a sudden loss of vision. Summary Bacterial conjunctivitis is an infection of the clear membrane that covers the white part of the eye and the inner surface of the eyelid (conjunctiva). Bacterial conjunctivitis spreads easily from eye to eye and from person to person (is contagious). Wash your hands often with soap and water for at least 20 seconds and especially before touching your face or eyes. Use paper towels to dry your hands. Take or apply your antibiotic medicine as told by your health care provider. Do not stop using the antibiotic even if your condition improves. Contact a health care provider if you have a fever or if your symptoms do not get better after 10 days. Get help right away if you have a sudden loss of vision. This information is not intended to replace advice given to you by your health care provider. Make sure you discuss any questions you have with your health care provider. Document Revised: 05/06/2021 Document Reviewed: 05/06/2021 [employer] Patient Education 2022 [employer]. Follow Up Care 01/06/2023 09:10:14 With:Kurt Cisneros DO Address: [address] [place], [place] [id number]- When: Unknown [facility] Hospital Discharge instructions 07-13-2022 Note Date & Type Note Facility 07-13-2022 Hospital Discharge instructions Patient Education 07/13/2022 10:59:22 BMI for Adults BMI for Adults What is BMI? Body mass index (BMI) is a number that is calculated from a person's weight and height. BMI can help estimate how much of a person's weight is composed of fat. BMI does not measure body fat directly. Rather, it is an alternative to procedures that directly measure body fat, which can be difficult and expensive. BMI can help identify people who may be at higher risk for certain medical problems. What are BMI measurements used for? BMI is used as a screening tool to identify possible weight problems. It helps determine whether a person is obese, overweight, a healthy weight, or underweight. BMI is useful for: Identifying a weight problem that may be related to a medical condition or may increase the risk for medical problems. Promoting changes, such as changes in diet and exercise, to help reach a healthy weight. BMI screening can be repeated to see if these changes are working. How is BMI calculated? BMI involves measuring your weight in relation to your height. Both height and weight are measured, and the BMI is calculated from those numbers. This can be done either in [place] ([place] or metric measurements. Note that charts and online BMI calculators are available to help you find your BMI quickly and easily without having to do these calculations yourself. To calculate your BMI in [place] measurements: 1.Measure your weight in pounds (lb). 2.Multiply the number of pounds by 703. For example, for a person who weighs 180 lb, multiply that number by 703, which equals 126,540. 3.Measure your height in inches. Then multiply that number by itself to get a measurement called inches squared. For example, for a person who is 70 inches tall, the inches squared measurement is 70 inches x 70 inches, which equals 4,900 inches squared. 4.Divide the total from step 2 (number of lb x 703) by the total from step 3 (inches squared): 126,540 4,900 = 25.8. This is your BMI. To calculate your BMI in metric measurements: 1.Measure your weight in kilograms (kg). 2.Measure your height in meters (m). Then multiply that number by itself to get a measurement called meters squared. For example, for a person who is 1.75 m tall, the meters squared measurement is 1.75 m x 1.75 m, which is equal to 3.1 meters squared. 3.Divide the number of kilograms (your weight) by the meters squared number. In this example: 70 3.1 = 22.6. This is your BMI. What do the results mean? BMI charts are used to identify whether you are underweight, normal weight, overweight, or obese. The following guidelines will be used: Underweight: BMI less than 18.5. Normal weight: BMI between 18.5 and 24.9. Overweight: BMI between 25 and 29.9. Obese: BMI of 30 or above. Keep these notes in mind: Weight includes both fat and muscle, so someone with a muscular build, such as an athlete, may have a BMI that is higher than 24.9. In cases like these, BMI is not an accurate measure of body fat. To determine if excess body fat is the cause of a BMI of 25 or higher, further assessments may need to be done by a health care provider. BMI is usually interpreted in the same way for men and women. Where to find more information For more information about BMI, including tools to quickly calculate your BMI, go to these websites: Centers for Disease Control and Prevention: www.cdc.gov [place] [employer]: www.heart.org National Heart, Lung, and Blood [place]: www.nhlbi.nih.gov Summary Body mass index (BMI) is a number that is calculated from a person's weight and height. BMI may help estimate how much of a person's weight is composed of fat. BMI can help identify those who may be at higher risk for certain medical problems. BMI can be measured using [place] measurements or metric measurements. BMI charts are used to identify whether you are underweight, normal weight, overweight, or obese. This information is not intended to replace advice given to you by your health care provider. Make sure you discuss any questions you have with your health care provider. Document Revised: 10/17/2019 Document Reviewed: 08/24/2019 [employer] Patient Education 2022 [employer]. 07/13/2022 10:59:18 Diarrhea, Adult Diarrhea, Adult Diarrhea is frequent loose and watery bowel movements. Diarrhea can make you feel weak and cause you to become dehydrated. Dehydration can make you tired and thirsty, cause you to have a dry mouth, and decrease how often you urinate. Diarrhea typically lasts 2 3 days. However, it can last longer if it is a sign of something more serious. It is important to treat your diarrhea as told by your health care provider. Follow these instructions at home: Eating and drinking Follow these recommendations as told by your health care provider: Take an oral rehydration solution (ORS). This is an wdry-uen-ysfalxi medicine that helps return your body to its normal balance of nutrients and water. It is found at pharmacies and retail stores. Drink plenty of fluids, such as water, ice chips, diluted fruit juice, and low-calorie sports drinks. You can drink milk also, if desired. Avoid drinking fluids that contain a lot of sugar or caffeine, such as energy drinks, sports drinks, and soda. Eat bland, kymg-aw-bfpnhd foods in small amounts as you are able. These foods include bananas, applesauce, rice, lean meats, toast, and crackers. Avoid alcohol. Avoid spicy or fatty foods. Medicines Take humo-oew-ukaapby and prescription medicines only as told by your health care provider. If you were prescribed an antibiotic medicine, take it as told by your health care provider. Do not stop using the antibiotic even if you start to feel better. General instructions Wash your hands often using soap and water. If soap and water are not available, use a hand artist blacksmith. Others in the household should wash their hands as well. Hands should be washed: ?After using the toilet or changing a diaper. ?Before preparing, cooking, or serving food. ?While caring for a sick person or while visiting someone in a hospital. Drink enough fluid to keep your urine pale yellow. Rest at home while you recover. Watch your condition for any changes. Take a warm bath to relieve any burning or pain from frequent diarrhea episodes. Keep all follow-up visits as told by your health care provider. This is important. Contact a health care provider if: You have a fever. Your diarrhea gets worse. You have new symptoms. You cannot keep fluids down. You feel light-headed or dizzy. You have a headache. You have muscle cramps. Get help right away if: You have chest pain. You feel extremely weak or you faint. You have bloody or black stools or stools that look like tar. You have severe pain, cramping, or bloating in your abdomen. You have trouble breathing or you are breathing very quickly. Your heart is beating very quickly. Your skin feels cold and clammy. You feel confused. You have signs of dehydration, such as: ?Dark urine, very little urine, or no urine. ?Cracked lips. ?Dry mouth. ?Sunken eyes. ?Sleepiness. ?Weakness. Summary Diarrhea is frequent loose and sometimes watery bowel movements. Diarrhea can make you feel weak and cause you to become dehydrated. Drink enough fluids to keep your urine pale yellow. Make sure that you wash your hands after using the toilet. If soap and water are not available, use hand artist blacksmith. Contact a health care provider if your diarrhea gets worse or you have new symptoms. Get help right away if you have signs of dehydration. This information is not intended to replace advice given to you by your health care provider. Make sure you discuss any questions you have with your health care provider. Document Revised: 08/05/2021 Document Reviewed: 08/05/2021 [employer] Patient Education 2022 [employer]. 07/13/2022 10:59:15 Upper Respiratory Infection, Adult Upper Respiratory Infection, Adult An upper respiratory infection (URI) is a common viral infection of the nose, throat, and upper air passages that lead to the lungs. The most common type of URI is the common cold. URIs usually get better on their own, without medical treatment. What are the causes? A URI is caused by a virus. You may catch a virus by: Breathing in droplets from an infected person's cough or sneeze. Touching something that has been exposed to the virus (is contaminated) and then touching your mouth, nose, or eyes. What increases the risk? You are more likely to get a URI if: You are very young or very old. You have close contact with others, such as at work, school, or a health care facility. You smoke. You have long-term (chronic) heart or lung disease. You have a weakened disease-fighting system (immune system). You have nasal allergies or asthma. You are experiencing a lot of stress. You have poor nutrition. What are the signs or symptoms? A URI usually involves some of the following symptoms: Runny or stuffy (congested) nose. Cough. Sneezing. Sore throat. Headache. Fatigue. Fever. Loss of appetite. Pain in your forehead, behind your eyes, and over your cheekbones (sinus pain). Muscle aches. Redness or irritation of the eyes. Pressure in the ears or face. How is this diagnosed? This condition may be diagnosed based on your medical history and symptoms, and a physical exam. Your health care provider may use a swab to take a mucus sample from your nose (nasal swab). This sample can be tested to determine what virus is causing the illness. How is this treated? URIs usually get better on their own within 7 10 days. Medicines cannot cure URIs, but your health care provider may recommend certain medicines to help relieve symptoms, such as: Ipof-ivf-njeawmp cold medicines. Cough suppressants. Coughing is a type of defense against infection that helps to clear the respiratory system, so take these medicines only as recommended by your health care provider. Fever-reducing medicines. Follow these instructions at home: Activity Rest as needed. If you have a fever, stay home from work or school until your fever is gone or until your health care provider says your URI cannot spread to other people (is no longer contagious). Your health care provider may have you wear a face mask to prevent your infection from spreading. Relieving symptoms Gargle with a mixture of salt and water 3 4 times a day or as needed. To make salt water, completely dissolve 1 tsp (3 6 g) of salt in 1 cup (237 mL) of warm water. Use a cool-mist humidifier to add moisture to the air. This can help you breathe more easily. Eating and drinking Drink enough fluid to keep your urine pale yellow. Eat soups and other clear broths. General instructions Take jybq-lki-aurdqaa and prescription medicines only as told by your health care provider. These include cold medicines, fever reducers, and cough suppressants. Do not use any products that contain nicotine or tobacco. These products include cigarettes, chewing tobacco, and vaping devices, such as e-cigarettes. If you need help quitting, ask your health care provider. Stay away from secondhand smoke. Stay up to date on all immunizations, including the yearly (annual) flu vaccine. Keep all follow-up visits. This is important. How to prevent the spread of infection to others URIs can be contagious. To prevent the infection from spreading: Wash your hands with soap and water for at least 20 seconds. If soap and water are not available, use hand artist blacksmith. Avoid touching your mouth, face, eyes, or nose. Cough or sneeze into a tissue or your sleeve or elbow instead of into your hand or into the air. Contact a health care provider if: You are getting worse instead of better. You have a fever or chills. Your mucus is brown or red. You have yellow or brown discharge coming from your nose. You have pain in your face, especially when you bend forward. You have swollen neck glands. You have pain while swallowing. You have white areas in the back of your throat. Get help right away if: You have shortness of breath that gets worse. You have severe or persistent: ?Headache. ?Ear pain. ?Sinus pain. ?Chest pain. You have chronic lung disease along with any of the following: ?Making high-pitched whistling sounds when you breathe, most often when you breathe out (wheezing). ?Prolonged cough (more than 14 days). ?Coughing up blood. ?A change in your usual mucus. You have a stiff neck. You have changes in your: ?Vision. ?Hearing. ?Thinking. ?Mood. These symptoms may be an emergency. Get help right away. Call 911. Do not wait to see if the symptoms will go away. Do not drive yourself to the hospital. Summary An upper respiratory infection (URI) is a common infection of the nose, throat, and upper air passages that lead to the lungs. A URI is caused by a virus. URIs usually get better on their own within 7 10 days. Medicines cannot cure URIs, but your health care provider may recommend certain medicines to help relieve symptoms. This information is not intended to replace advice given to you by your health care provider. Make sure you discuss any questions you have with your health care provider. Document Revised: 08/26/2021 Document Reviewed: 08/26/2021 [employer] Patient Education 2022 [employer]. Follow Up Care 07/13/2022 10:20:44 With:Kurt Cisneros DO Address: [address] [place] [address]- When: Unknown [facility] Evaluation + Plan note Note Date & Type Note Facility Evaluation + Plan note No data available for this section [facility] Hospital Discharge instructions Note Date & Type Note Facility Hospital Discharge instructions No data available for this section [facility] Progress note Note Date & Type Note Facility Progress note No data available for this section [facility] Summary Purpose Family History No Family History Records FoundNo Family History Records Found No data available for this section No Family History Records Found Advance Directives No Advanced Directives Records FoundNo Advanced Directives Records FoundNo Advanced Directives Records Found Additional Source Comments INFORMATION SOURCE (unrecogn ized section and content) DATE CREATED AUTHOR 03/01/2021 [facility] DATE CREATED AUTHOR AUTHOR'S ORGANIZ ATION 01/20/2022 [facility] DATE CREATED AUTHOR AUTHOR'S ORGANIZ ATION 01/08/2023 [facility] Care Team (unrecognized sect ion and content) Personnel Name: Kurt Cisneros DO Address: [address] [place] [address] Personnel Name: Kurt Cisneros DO Address: Address: [address] [place] [address] Personnel Name: Kurt Cisneros DO Address: Address: [address] [place] [address] FOR RECORDS PERTAINING TO PATIENTS WHO ARE OR HAVE BEEN ENROLLED IN A CHEMICAL DEPENDENCY/SUBSTANCEABUSE PROGRAM, SOME INFORMATION MAY BE OMITTED. This clinical summary was aggregated from multiple sources. Caution should be exercised in using it in the provision of clinical care. This summary normalizes information from multiple sources, and as a consequence, information in this document may materially change the coding, format and clinical context of patient data. In addition, data may be omitted in some cases. CLINICAL DECISIONS SHOULD BE BASED ON THE PRIMARY CLINICAL RECORDS. [facility] provides no warranty or guarantee of the accuracy or completeness of information in this document.
[2023-02-01 15:08] LABS: Age Gdln ACOG Testing Note (.); IGP, rfx Aptima HPV ASCU Note (.)
== END 2023-01-26 19:59 | disposition home or self-care (01) ==
LOC: LAB 19:58
PROVIDERS: Visit Provider Obstetrics & Gynecology
DX: Z01.419 Encounter for gynecological examination (general) (routine) without abnormal findings (principal)
CPT/HCPCS: G0145

== ENCOUNTER 2024-05-17 12:28 | Outpatient (REF) | payer OTHER, SELFPAY ==
--- OUTSIDE RECORDS SUMMARY | 2024-05-17 12:35 | XMS_ITS | CCD ---
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 Negative [facility] Comment on above: Performed By: #### V AGINT #### [facility] [address] [place] [address] Dr. Sil Shane Alkaline Phosphataseon 12-05 ALP [Catalytic activity/Vol] 42 U/L Normal 32-[address] [facility] Comment on above: Performed By: #### A MY, AST, HCGQUAL, BILTD, LIPASE, ALP #### [address] Amylaseon 12-05-2020 Amylase [Catalytic activity/Vol] 54 U/L Normal 28-[address] [facility] Comment on above: Performed By: #### A MY, AST, HCGQUAL, BILTD, LIPASE, ALP #### [address] Aspartate Amino Transferaseo n 12-05-2020 AST [Catalytic activity/Vol] 14 U/L Normal 10-[address] [facility] Comment on above: Performed By: #### A MY, AST, HCGQUAL, BILTD, LIPASE, ALP #### [address] Bilirubin, Total and Directo n 12-05-2020 Bilirubin [Mass/Vol] 0.3 mg/dL Normal 0.3-1.[address] [facility] Comment on above: Performed By: #### A MY, AST, HCGQUAL, BILTD, LIPASE, ALP #### [address] Bilirubin,Indirect Not performed Normal [facility] Comment on above: Performed By: #### A MY, AST, HCGQUAL, BILTD, LIPASE, ALP #### [address] Bilirubin.indirect [Mass/Vol] mg/dL Normal 0.0-0.[address] [facility] Comment on above: Performed By: #### A MY, AST, HCGQUAL, BILTD, LIPASE, ALP #### [address] HCG,Qualitative Serumon 11-08 HCG,Qualitative Serum Negative Normal [facility] Comment on above: Result Comment: PERF ORMED BY: [place] [address] PATHOLOGIST RELIABILITY MANAGER RADHA MILLS M.D. Performed By: #### A MY, AST, HCGQUAL, BILTD, LIPASE, ALP #### [place] [address] [place] 12-05-2020 L -- ---- Specimen: [id number] Received: 12/08/20 Status: JENNIFER Jacobs Num: [id number] Spec Type: Surgical Subm Dr: Fausto Burnett DO Tissues: A Gallbladder (GALLBLADDER) Procedures: HE Stain, Gross/Micro L3 ---- Patient Age/Sex Location Account Attending Physician ---- Williams Henriquez /F [place] [id number] Fausto Burnett DO ---- SPEC NUM: [id number] RECD: 12/08/20 STATUS: JENNIFER JACOBS NUM: [id number] JOSEFINA: 12/05/20- SUBM DR: Fausto Burnett DO ENTERED: 12/08/[address] [facility] [address]: SPEC TYPE: Surgical DEPT: S ORDERED: [...] is filtered and no choleliths are identified. Revenue Cycle Consultant sections are submitted in one cassette labeled A1. (SM/YJ) Microscopic Description One glass slide with H E stained material has been examined. The microscopic findings support the above pathologic diagnosis. ---- Specimen: [id number] Received: 12/08/20 Status: BIANKASoha Reynaldo Num: [id number] Spec Type: Surgical Subm Dr: Fausto Burnett DO Tissues: A Gallbladder (GALLBLADDER) Procedures: HE Stain, Gross/Micro L3 ---- Patient: CassandraWilliams [id number] (Continued) ---- Specimen: [id number] Received: 12/08/20 (Continued) Signed (signature on file) Elodia Raya MD 12/09/20 1528 ---- Specimen: [id number] Received: 12/08/20 Status: JENNIFER Jacobs Num: [id number] Spec Type: Surgical Subm Dr: Fausto Burnett DO Tissues: A Gallbladder (GALLBLADDER) Procedures: HE Stain, Gross/Micro L3 ---- Patient: Williams Henriquez [id number] (Continued) ---- Specimen: [id number] Received: 12/08/20 (Continued) CPT Codes 80153 ---- ---- Specimen: [id number] Received: 12/08/20 Status: JENNIFER Jacobs Num: [id number] Spec Type: Surgical Subm Dr: Fausto Burnett DO Tissues: A Gallbladder (GALLBLADDER) Procedures: HE Stain, Gross/Micro L3 ---- Patient: Williams Henriquez [id number] (Continued) ---- Signed (signature on file) Elodia Raya MD 12/09/[address] [facility] Lipaseon 12-05-2020 Lipase [Catalytic activity/Vol] 25.0 U/L Normal 22-[address] [facility] Comment on above: Performed By: #### A MY, AST, HCGQUAL, BILTD, LIPASE, ALP #### [facility] [address] COVID-19 FRMCon 12-03-2020 SARS-CoV-2 (COVID-19) RNA GREGORY+probe Ql (Unsp spec) Negative Normal Negative [facility] Comment on above: Order Comment: Healt hcare Worker?: N Result Comment: Testing for SARS-CoV-2 by RT-PCR This test was developed and its performance characteristics determined by [employer] ([employer]) and validated at the [facility]. This test has not been FDA [...] is terminated or revoked sooner. PERFORMED BY: [facility] [address] [place] [address] PATHOLOGIST RELIABILITY MANAGER RADHA MILLS M.D. Performed By: #### C OVID 19 [facility] #### [facility] [address] [place] [id number] [facility] HCG,Urineon 08-26-2020 Beta HCG ( test) Ql (U) Negative Normal [facility] Comment on above: Result Comment: PERF ORMED BY: [address] [address] PATHOLOGIST RELIABILITY MANAGER RADHA MILLS M.D. Performed By: #### U [facility] #### [facility] [address] 08-26-2020 L -- ---- Specimen: [id number] Received: 08/27/20 Status: JENNIFER Jacobs Num: [id number] Spec Type: Surgical Subm Dr: Juan Antonio MD Tissues: A Duodenum - Biopsy (DUODENUM BX) Procedures: HE Stain/2, Gross/Micro L4 ---- Patient Age/Sex Location Account Attending Physician ---- Williams Henriquez 20/ [id number] Juan Antonio MD ---- SPEC NUM: [id number] RECD: 08/27/20 STATUS: JENNIFER JACOBS NUM: [id number] JOSEFINA: 08/26/20- SUBM DR: Juan Antonio MD ENTERED: 08/27/[address] [facility] [address]: SPEC TYPE: Surgical DEPT: S ENTERED BY: [id number] RECV BY: [id number] ORDERED: HE Stain/2, Gross/Micro L4 ORDERED: HE [...] Entirely submitted in one cassette labeled A1. (/YJ) Microscopic Description Two glass slides with H E stained material have been examined. The microscopic findings support the above pathologic diagnosis. CPT Codes 87949 ---- ---- Specimen: [id number] Received: 08/27/20 Status: JENNIFER Jacobs Num: [id number] Spec Type: Surgical Subm Dr: Juan Antonio MD Tissues: A Duodenum - Biopsy (DUODENUM BX) Procedures: HE Stain/2, Gross/Micro L4 ---- Patient: Williams Henriquez [id number] (Continued) ---- Signed (signature on file) Elodia Raya MD 08/28/[address] [facility] SARS-CoV-2 (COVID-19) RNA GREGORY+probe Ql (Unsp spec) Negative Normal Negative [facility] Comment on above: Order Comment: Healt hcare Worker?: N Result Comment: Testing for SARS-CoV-2 by RT-PCR This test was developed and its performance characteristics determined by [employer] ([employer]) and validated at the [facility]. This test has not been FDA [...] is terminated or revoked sooner. PERFORMED BY: [place] [address] PATHOLOGIST RELIABILITY MANAGER RADHA MILLS M.D. Performed By: #### C OVID 19 [facility] #### [place] [id number] [facility] Vital Signs Date Time Vital Sign Value Performing Clinician Facility 05-17-2024 09:19-0400 Body mass index (BMI) [Ratio] 44.82 kg/m2 Carisa Roper NP Work Phone: [facility] 05-17-2024 09:19-0400 Body weight 118.44 kg Carisa Roper [employer]URNACE CARETAKER Work Phone: [facility] 05-17-2024 09:19-0400 Diastolic blood pressure 70 mm[Hg] Carisa Roper [employer]URNACE CARETAKER Work Phone: [facility] 05-17-2024 09:19-0400 Systolic blood pressure 116 mm[Hg] Carisa Roper FURNACE CARETAKER Work Phone: [facility] 08-16-2023 12:09-0400 Blood Pressure Location [facility] 08-16-2023 12:09-0400 Body temperature 98.24 [degF] [facility] 08-16-2023 12:09-0400 Diastolic blood pressure 70 mm[Hg] [facility] 08-16-2023 12:09-0400 Heart rate 95 /min [facility] 08-16-2023 12:09-0400 SaO2% (BldA) [Mass fraction] 98 % [facility] 08-16-2023 12:09-0400 Systolic blood pressure 112 mm[Hg] [facility] 01-06-2023 10:09-0500 Blood Pressure Location Lauri Cohen [facility] 01-06-2023 10:09-0500 Body temperature 98.24 [degF] Lauri Cohen [facility] 01-06-2023 10:09-0500 Diastolic blood pressure 78 mm[Hg] Lauri Cohen [facility] 01-06-2023 10:09-0500 Heart rate 88 /min Lauri Cohen [facility] 01-06-2023 10:09-0500 SaO2% (BldA) [Mass fraction] 99 % Lauri Cohen [facility] 01-06-2023 10:09-0500 Systolic blood pressure 116 mm[Hg] Lauri Cohen [facility] 07-13-2022 10:35-0400 Blood Pressure Location Lauri Coehn [facility] 07-13-2022 10:35-0400 Body temperature 99.68 [degF] Lauri Cohen [facility] 07-13-2022 10:35-0400 Diastolic blood pressure 62 mm[Hg] Lauri Cohen [facility] 07-13-2022 10:35-0400 Heart rate 112 /min Lauri Cohen [facility] 07-13-2022 10:35-0400 SaO2% (BldA) [Mass fraction] 98 % Lauri Cohen [facility] 07-13-2022 10:35-0400 Systolic blood pressure 108 mm[Hg] Lauri Cohen [facility] Encounters Encounter Date Encounter Type Care Provider Facility Start: 05-17-2024 End: 05-17-2024 Bamboo flowsheet Carisa Judson [employer]NACE CARETAKER Work Phone: [facility] Start: 05-17-2024 End: 05-17-2024 Bamboo flowsheet Carisa Roper [employer]NACE CARETAKER Work Phone: [facility] Start: 05-17-2024 End: 05-17-2024 Patient encounter procedure Carisa Judson [employer]NACE CARETAKER Work Phone: [facility] Work Phone: Start: 05-17-2024 End: 05-17-2024 Periodic preventive med est patient 18-39 yrs Carisa Judson FURNACE CARETAKER Work Phone: [facility] Comment on above: Well woman exam with routine gynecological exam; Encounter for initial prescription of contraceptive pills Start: 03-20-2024 End: 03-20-2024 ambulatory CRISTAL JANE Facility:[facility] Start: 08-16-2023 End: 08-16-2023 ambulatory Jessee Johnson Facility:[facility] Start: 08-16-2023 End: 08-16-2023 Patient encounter procedure Jessee Johnson [facility] Start: 08-03-2023 End: 08-03-2023 Emergency department patient visit [facility] Start: 01-26-2023 End: 01-26-2023 ambulatory DAVID WOODARD Not Available Start: 01-06-2023 End: 01-06-2023 Patient encounter procedure Lauri Cohen [facility] Start: 07-13-2022 End: 07-13-2022 Patient encounter procedure Lauri Cohen [facility] Start: 12-15-2021 End: 12-15-[address] KURT CISNEROS Facility:[facility] Start: 12-14-2021 End: 12-14-[address] DAVID WOODARD Facility:[facility] Start: 04-23-2021 End: 07-23-2021 Patient encounter procedure [facility] Procedures Date Procedure Procedure Detail Performing Clinician Start: 02-07-2018 Cholecystectomy Lauri fernandez section Lauri levine Plan of Treatment Date Care Activity Detail Author Cytology Cervical or vaginal smear or scraping study Pap Smear Pathology and Cytology Routine Well woman exam with routine gynecological exam Ordered: 05/17/2024 [facility] Work Phone: Comment on above: Ordered: 05/17/2024 Immunizations Immunization Date Immunization Notes Care Provider Ria lambert 09-19-2018 meningococcal polysaccharide (groups A, C, Y and W-135) diphtheria toxoid conjugate vaccine (MCV4P) [facility] 04-24-2013 meningococcal ACWY vaccine, unspecified formulation [facility] 04-24-2013 tetanus toxoid, redu carie diphtheria toxoid, and acellular pertussis vaccine, adsorbed [facility] 03-02-2006 diphtheria, tetanus toxoids and acellular pertussis vaccine [facility] 03-02-2006 measles, mumps and rubella virus vaccine [facility] 03-02-2006 poliovirus vaccine, unspecified formulation [facility] 03-02-2006 varicella virus vaccine [facility] 11-21-2003 influenza virus vacc ine, unspecified formulation [facility] 11-21-2003 poliovirus vaccine, unspecified formulation [facility] 08-01-2002 diphtheria, tetanus toxoids and acellular pertussis vaccine [facility] 08-01-2002 poliovirus vaccine, unspecified formulation [facility] 05-04-2002 haemophilus influenz ae type b vaccine, HbOC conjugate [facility] 05-04-2002 measles, mumps and rubella virus vaccine [facility] 02-09-2002 varicella virus vaccine J[facility] 2001 diphtheria, tetanus toxoids and acellular pertussis vaccine [facility] 2001 haemophilus influenz ae type b vaccine, HbOC conjugate [facility] 2001 diphtheria, tetanus toxoids and acellular pertussis vaccine [facility] 2001 haemophilus influenz ae type b vaccine, HbOC conjugate [facility] 2001 hepatitis B vaccine, adult dosage [facility] 2001 poliovirus vaccine, unspecified formulation [facility] 2001 diphtheria, tetanus toxoids and acellular pertussis vaccine [facility] 2001 haemophilus influenz ae type b vaccine, HbOC conjugate [facility] 2001 hepatitis B vaccine, adult dosage [facility] 2001 poliovirus vaccine, unspecified formulation [facility] 2001 hepatitis B vaccine, adult dosage [facility] Payers Date Payer Category Payer Unknown [id number] 2021 Medicaid [id number] 2021 Private Health Insurance [facility]ICA[facility] [id number] 2001 Unknown [id number] 2001 Unknown [id number] 2001 Unknown [id number] 2001 Unknown [id number] 2001 Unknown [id number] 2001 Unknown [id number] 1959 Unknown [id number] 1959 Unknown [id number] Social History Date Type Detail Facility Tobacco smoking status No Smokin g Status Entered [facility] Start: 11-15-2022 End: 05-17-2024 Sex Assigned At Female [facility] Start: 07-13-2022 End: 11-15-2022 Tobacco smoking status Never smoked tobacco (finding) [facility] Tobacco smoking status Never [facility] Start: 01-26-2023 End: 05-17-2024 Alcoholic beverage intake Lifetime non-drinker (finding) [facility] Start: 11-15-2022 End: 05-17-2024 History of Social function [facility] Start: 2001 Sex assigned at Not on file [facility] Functional Status Date Assessment Result Facility 08-16-2023 Functional Status N/A [facility] 01-06-2023 Functional Status N/A [facility] 07-13-2022 Functional Status N/A [facility] History of Present illness Narrative 05-17-2024 Megan Roque, KAUSHAL - 05/17/2024 9:00 AM EDT Note Date & Type Note Facility 05-17-2024 History of Presen t illness Narrative Reason for Appointment: Patient ID: Williams Henriquez is a 24 y.o. female who presents for Well Women Visit Patient presents today for Annual Exam. MEDICATIONS Current Outpatient Medications Medication Instructions norethindrone-ethinyl estradiol (Joan Fe 02/26) 1-20 MG-MCG tablet 1 tablet, Oral, Daily ALLERGIES Allergies Allergen Reactions Septra [Sulfamethoxazole-Trimethoprim] Hives and Rash Other Reaction(s): Unknown PROBLEMS Active Ambulatory Problems Diagnosis Date Noted No Active Ambulatory Problems Resolved Ambulatory Problems Diagnosis Date Noted No Resolved Ambulatory Problems Past Medical History: Diagnosis Date Gallstones History of migraine headaches HISTORY PAST MEDICAL HISTORY SOCIAL HISTORY Past Medical History: Diagnosis Date Gallstones History of migraine headaches Social History Tobacco Use Smoking status: Never Smokeless tobacco: Not on file Substance Use Topics Alcohol use: Never Drug use: Never FAMILY HISTORY Family History Problem Relation Name Age of Onset Diabetes Mother Other (Abnormal pap: HPV) Mother Mental illness Father Ovarian cancer Sister Bipolar disorder Sister Diabetes Maternal Grandmother Hyperlipidemia Maternal Grandmother Osteoporosis Maternal Grandmother Postmenopausal Hypertension Maternal Grandfather Prostate cancer Maternal Grandfather Hypertension Paternal Grandmother SURGICAL HISTORY Past Surgical History: Procedure Laterality Date SECTION, LOW TRANSVERSE 06/03/2020 OTHER SURGICAL HISTORY 2007 Broken arms as a child [place] LAP,CHOLECYSTECTOMY 12/05/2020 PCL WISDOM TOOTH EXTRACTION 2016 wisdom teeth REVIEW OF SYSTEMS Review of Systems: Review of Systems Constitutional: Negative. HENT: Negative. Eyes: Negative. Respiratory: Negative. Cardiovascular: Negative. Gastrointestinal: Negative. Genitourinary: Negative. Musculoskeletal: Negative. Skin: Negative. Neurological: Negative. All other systems reviewed and are negative. Hematological: Negative. Endocrine: Negative. Allergic/Immunologic: Negative. OBJECTIVE Objective: Physical Exam Constitutional: Appearance: Normal appearance. She is well-developed. Genitourinary: Vulva normal. Breasts: Breasts are soft. Right: Normal. Left: Normal. Cardiovascular: Rate and Rhythm: Normal rate and regular rhythm. Pulmonary: Effort: Pulmonary effort is normal. Breath sounds: Normal breath sounds. Abdominal: General: Bowel sounds are normal. There is no distension. Palpations: Abdomen is soft. Tenderness: There is no abdominal tenderness. There is no guarding or rebound. Musculoskeletal: General: No swelling. Normal range of motion. Right lower leg: No edema. Left lower leg: No edema. Neurological: Mental Status: She is alert and oriented to person, place, and time. Skin: General: Skin is warm and dry. Psychiatric: Mood and Affect: Mood normal. Behavior: Behavior normal. Vitals and nursing note reviewed. Exam conducted with a reserve officer present. Vitals: Estimated body mass index is 44.82 kg/m as calculated from the following: Height as of 22: 5' 4 . Weight as of this encounter: 261 lb 1.9 oz. BP: 116/70 No LMP recorded. ASSESSMENT & PLAN ICD-10-CM 1. Well woman exam with routine gynecological exam Z01.419 Pap Smear Annual Exam: Patient presents today for an annual exam. Patient states she is doing well and has no complaints. Pap was obtained without difficulty. Patient was previously on LoLoEstrin and it has since changed brands due to issues with LoLo. Refills sent for the year to be dispensed 3 months supply at a time. Follow Up: Patient is to return in one year for annual unless needed otherwise. Documented by Megan Roque LPN on behalf of: Carisa Roper NP documented in this encounter [facility] Clinical Note 03-20-2024 Note Date & Type Note Facility 03-20-2024 Note Patient Education Gastroenterology Nausea and Vomiting, Adult Nausea is feeling that you have an upset stomach and that you are about to vomit. Vomiting is when food in your stomach forcefully comes out of your mouth. Vomiting can make you feel weak. If you vomit, or if you are not able to drink enough fluids, you may not have enough water in your body (get dehydrated). If you do not have enough water in your body, you may: ??? Feel tired. ??? Feel thirsty. ??? Have a dry mouth. ??? Have cracked lips. ??? Pee (urinate) less often. Older adults and people with other diseases or a weak body defense system (immune system) are at higher risk for not having enough water in the body. If you feel like you may vomit or you vomit, it is important to follow instructions from your doctor about how to take care of yourself. Follow these instructions at home: Watch your symptoms for any changes. Tell your doctor about them. Eating and drinking ??? Take an ORS (oral rehydration solution). This is a drink that is sold at pharmacies and stores. ??? Drink clear fluids in small amounts as you are able, such as: ? Water. ? Ice chips. ? Fruit juice that has water added (diluted fruit juice). ? Low-calorie sports drinks. ??? Eat bland, rvnp-ff-tdprgy foods in small amounts as you are able, such as: ? Bananas. ? Applesauce. ? Rice. ? Low-fat (lean) meats. ? [place]. ? Crackers. ??? Avoid drinking fluids that have a lot of sugar or caffeine in them. This includes energy drinks, sports drinks, and soda. ??? Avoid alcohol. ??? Avoid spicy or fatty foods. General instructions ??? Take xtji-tpr-lgqeqwl and prescription medicines only as told by your doctor. ??? Drink enough fluid to keep your pee (urine) pale yellow. ??? Wash your hands often with soap and water for at least 20 seconds. If you cannot use soap and water, use hand institutional cook. ??? Make sure that everyone in your home washes their hands well and often. ??? Rest at home until you feel better. ??? Watch your condition for any changes. ??? Take slow and deep breaths when you feel like you may vomit. ??? Keep all follow-up visits. Contact a doctor if: ??? Your symptoms get worse. ??? You have new symptoms. ??? You have a fever. ??? You cannot drink fluids without vomiting. ??? You feel like you may vomit for more than 2 days. ??? You feel light-headed or dizzy. ??? You have a headache. ??? You have muscle cramps. ??? You have a rash. ??? You have pain while peeing. Get help right away if: ??? You have pain in your chest, neck, arm, or jaw. ??? You feel very weak or you faint. ??? You vomit again and again. ??? You have vomit that is bright red or looks like black coffee grounds. ??? You have bloody or black poop (stools) or poop that looks like tar. ??? You have a very bad headache, a stiff neck, or both. ??? You have very bad pain, cramping, or bloating in your belly (abdomen). ??? You have trouble breathing. ??? You are breathing very quickly. ??? Your heart is beating very quickly. ??? Your skin feels cold and clammy. ??? You feel confused. ??? You have signs of losing too much water in your body, such as: ? Dark pee, very little pee, or no pee. ? Cracked lips. ? Dry mouth. ? Sunken eyes. ? Sleepiness. ? Weakness. These symptoms may be an emergency. Get help right away. Call 911. ??? Do not wait to see if the symptoms will go away. ??? Do not drive yourself to the hospital. Summary ??? Nausea is feeling that you have an upset stomach and that you are about to vomit. Vomiting is when food in your stomach comes out of your mouth. ??? Follow instructions from your doctor about eating and drinking. ??? Take joyx-vou-bvzalxg and prescription medicines only as told by your doctor. ??? Contact your doctor if your symptoms get worse or you have new symptoms. ??? Keep all follow-up visits. This information is not intended to replace advice given to you by your health care provider. Make sure you discuss any questions you have with your health care provider. Document Revised: 07/31/2021 Document Reviewed: 07/31/2021 [employer] Patient Education ? 2023 [employer] [facility] Hospital Discharge instructions 08-16-2023 Note Date & Type Note Facility 08-16-2023 Hospital Discharg e instructions Patient Education 08/16/2023 20:45:46 BMI for Adults BMI for Adults What [...] numbers. This can be done either in [place] or metric measurements. Note that charts and online BMI calculators are available to help you find your BMI quickly and easily without having to do these calculations yourself. To calculate your BMI in [place] ([place] measurements: 1.Measure your weight in pounds [...] Centers for Disease Control and Prevention: www.cdc.gov [employer]: www.heart.org National Heart, Lung, and Blood [place]: www.nhlbi.nih.gov Summary Body mass index (BMI) is a number that is calculated from a person's weight and height. BMI may help estimate how much of a person's weight is composed of fat. BMI can help identify those who may be at higher risk for certain medical problems. BMI can be measured using Niuean measurements or metric measurements. BMI charts are used to identify whether you are underweight, normal weight, overweight, or obese. This information is not intended to replace advice given to you by your health care provider. Make sure you discuss any questions you have with your health care provider. Document Revised: 10/17/2019 Document Reviewed: 08/24/2019 [employer] Patient Education 2022 [employer]. 08/16/2023 20:45:42 Abdominal Pain, Adult, Kkyt-qk-Rnho Abdominal Pain, Adult Many things can cause belly (abdominal) pain. Most times, belly pain is not dangerous. Many cases of belly pain can be watched and treated at home. Sometimes, though, belly pain is serious. Your doctor will try to find the cause of your belly pain. Follow these instructions at home: Medicines Take syxq-cxs-slricug and prescription medicines only as told by your doctor. Do not take medicines that help you poop (laxatives) unless told by your doctor. General instructions Watch your belly pain for any changes. Drink enough fluid to keep your pee (urine) pale yellow. Keep all follow-up visits as told by your doctor. This is important. Contact a doctor if: Your belly pain changes or gets worse. You are not hungry, or you lose weight without trying. You are having trouble pooping (constipated) or have watery poop (diarrhea) for more than 2 3 days. You have pain when you pee or poop. Your belly pain wakes you up at night. Your pain gets worse with meals, after eating, or with certain foods. You are vomiting and cannot keep anything down. You have a fever. You have blood in your pee. Get help right away if: Your pain does not go away as soon as your doctor says it should. You cannot stop vomiting. Your pain is only in areas of your belly, such as the right side or the left lower part of the belly. You have bloody or black poop, or poop that looks like tar. You have very bad pain, cramping, or bloating in your belly. You have signs of not having enough fluid or water in your body (dehydration), such as: ?Dark pee, very little pee, or no pee. ?Cracked lips. ?Dry mouth. ?Sunken eyes. ?Sleepiness. ?Weakness. You have trouble breathing or chest pain. Summary Many cases of belly pain can be watched and treated at home. Watch your belly pain for any changes. Take inqm-shk-kaamcmi and prescription medicines only as told by your doctor. Contact a doctor if your belly pain changes or gets worse. Get help right away if you have very bad pain, cramping, or bloating in your belly. This information is not intended to replace advice given to you by your health care provider. Make sure you discuss any questions you have with your health care provider. Document Revised: 06/04/2019 Document Reviewed: 06/04/2019 [employer] Patient Education 2022 [employer]. [facility] Clinical Note 08-16-2023 Note Date & Type Note Facility 08-16-2023 Note Patient Education Gastroenterology Abdominal Pain, Adult Many things can cause belly (abdominal) pain. Most times, belly pain is not dangerous. Many cases of belly pain can be watched and treated at home. Sometimes, though, belly pain is serious. Your doctor will try to find the cause of your belly pain. Follow these instructions at home: Medicines ? Take vooz-zxo-xbycpue and prescription medicines only as told by your doctor. ? Do not take medicines that help you poop (laxatives) unless told by your doctor. General instructions ? Watch your belly pain for any changes. ? Drink enough fluid to keep your pee (urine) pale yellow. ? Keep all follow-up visits as told by your doctor. This is important. Contact a doctor if: ? Your belly pain changes or gets worse. ? You are not hungry, or you lose weight without trying. ? You are having trouble pooping (constipated) or have watery poop (diarrhea) for more than 2?3 days. ? You have pain when you pee or poop. ? Your belly pain wakes you up at night. ? Your pain gets worse with meals, after eating, or with certain foods. ? You are vomiting and cannot keep anything down. ? You have a fever. ? You have blood in your pee. Get help right away if: ? Your pain does not go away as soon as your doctor says it should. ? You cannot stop vomiting. ? Your pain is only in areas of your belly, such as the right side or the left lower part of the belly. ? You have bloody or black poop, or poop that looks like tar. ? You have very bad pain, cramping, or bloating in your belly. ? You have signs of not having enough fluid or water in your body (dehydration), such as: ? Dark pee, very little pee, or no pee. ? Cracked lips. ? Dry mouth. ? Sunken eyes. ? Sleepiness. ? Weakness. ? You have trouble breathing or chest pain. Summary ? Many cases of belly pain can be watched and treated at home. ? Watch your belly pain for any changes. ? Take fxlg-noz-eeebbvv and prescription medicines only as told by your doctor. ? Contact a doctor if your belly pain changes or gets worse. ? Get help right away if you have very bad pain, cramping, or bloating in your belly. This information is not intended to replace advice given to you by your health care provider. Make sure you discuss any questions you have with your health care provider. Document Revised: 06/04/2019 Document Reviewed: 06/04/2019 [employer] Patient Education ? 2022 [employer]. Nutrition BMI for Adults What is BMI? Body [...] numbers. This can be done either in [place] or metric measurements. Note that charts and online BMI calculators are available to help you find your BMI quickly and easily without having to do these calculations yourself. To calculate your BMI in [place] ([place] measurements: 1. Measure your weight in [...] number. In this example: 70 ? 3.1 (more content not included)... [facility] Hospital Discharge instructions 01-06-2023 Note Date [...] your health care provider. Take or apply dmtn-bpm-jfajlye and prescription medicines only as told by [...] provider. Document Revised: 05/06/2021 Document Reviewed: 05/06/2021 [employer] Patient Education 2022 [employer]. Follow Up Care 01/06/2023 09:10:14 With:Kurt Cisneros DO Address: [address] [place], [place] [id number]- When: Unknown [facility] Hospital Discharge instructions 07-13-2022 Note [...] numbers. This can be done either in [place] ([place] or metric measurements. Note that charts and online BMI calculators are available to help you find your BMI quickly and easily without having to do these calculations yourself. To calculate your BMI in [place] ([place] measurements: 1.Measure your weight in pounds [...] Centers for Disease Control and Prevention: www.cdc.gov [employer]: www.heart.org National Heart, Lung, and Blood [place]: www.nhlbi.nih.gov Summary Body mass index (BMI) is a number that is calculated from a person's weight and height. BMI may help estimate how much of a person's weight is composed of fat. BMI can help identify those who may be at higher risk for certain medical problems. BMI can be measured using [place]an measurements or metric measurements. BMI charts are used to identify whether you are underweight, normal weight, overweight, or obese. This information is not intended to replace advice given to you by your health care provider. Make sure you discuss any questions you have with your health care provider. Document Revised: 10/17/2019 Document Reviewed: 08/24/2019 [employer] Patient Education 2022 [employer]. 07/13/2022 10:59:18 Diarrhea, Adult Diarrhea, Adult Diarrhea [...] oral rehydration solution (ORS). This is an frtz-hgt-hsrldmv medicine that helps return your body to [...] drinks, sports drinks, and soda. Eat bland, ojmn-ll-ynywgs foods in small amounts as you are able. These foods include bananas, applesauce, rice, lean meats, toast, and crackers. Avoid alcohol. Avoid spicy or fatty foods. Medicines Take dnyb-qxw-fcmrhaa and prescription medicines only as told by your health care provider. If you were prescribed an antibiotic medicine, take it as told by your health care provider. Do not stop using the antibiotic even if you start to feel better. General instructions Wash your hands often using soap and water. If soap and water are not available, use a hand institutional cook. Others in the household should wash their [...] and water are not available, use hand institutional cook. Contact a health care provider if your diarrhea gets worse or you have new symptoms. Get help right away if you have signs of dehydration. This information is not intended to replace advice given to you by your health care provider. Make sure you discuss any questions you have with your health care provider. Document Revised: 08/05/2021 Document Reviewed: 08/05/2021 [employer] Patient Education 2022 [employer]. 07/13/2022 10:59:15 Upper Respiratory Infection, Adult Upper [...] medicines to help relieve symptoms, such as: Zoie-hqw-dftfqdh cold medicines. Cough suppressants. Coughing is a [...] and other clear broths. General instructions Take gmlo-nrb-lzetbva and prescription medicines only as told by [...] and water are not available, use hand institutional cook. Avoid touching your mouth, face, eyes, or [...] provider. Document Revised: 08/26/2021 Document Reviewed: 08/26/2021 [employer] Patient Education 2022 [employer]. Follow Up Care 07/13/2022 10:20:44 With:Kurt Cisneros DO Address: [address] [place] [address]- When: Unknown [facility] Evaluation + Plan note Note Date & Type Note Facility Evaluation + Plan note No data available for this section [facility] Evaluation note Note Date & Type Note Facility Evaluation note Diagnosis Well woman exam with routine gynecological exam Routine gynecological examination Encounter for initial prescription of contraceptive pills documented in this encounter [facility] Hospital Discharge instructions Note Date & Type Note Facility Hospital Discharge instructions No data available for this section [facility] Progress note Note Date & Type Note Facility Progress note No data available for this section [facility] Summary Purpose Family History No Family History Records FoundNo Family History Records Found No data available for this section No Family History Records FoundNo Family History Records Found No data available for this section No Family History Records Found Advance Directives No Advanced Directives Records FoundNo Advanced Directives Records FoundNo Advanced Directives Records FoundNo Advanced Directives Records FoundNo Advanced Directives Records Found Additional Source Comments INFORMATION SOURCE (unrecogn ized section and content) DATE CREATED AUTHOR 03/01/2021 [facility] DATE CREATED AUTHOR AUTHOR'S ORGANIZ ATION 01/20/2022 [facility] DATE CREATED AUTHOR AUTHOR'S ORGANIZ ATION 01/28/2023 [facility] EPIC DATE CREATED AUTHOR AUTHOR'S ORGANIZ ATION 08/11/2023 [facility] DATE CREATED AUTHOR AUTHOR'S ORGANIZ ATION 03/22/2024 [facility] Care Team (unrecognized sect ion and content) Personnel Name: Chilango MAST Kurt Indra Address: [address] [place] [address] Personnel Name: Chilango DO Kurt Indra Address: Address: [address] [place] [address] Personnel Name: Chilango MAST Kurt Indra Address: Address: [address] [place] [address] Personnel Name: JACKIE PIKE Reason for Visit (unrecogniz ed section and content) Reason Comments Well Women Visit FOR RECORDS PERTAINING TO PATIENTS WHO ARE [...] BE BASED ON THE PRIMARY CLINICAL RECORDS. Issue [facility]. provides no warranty or guarantee of the accuracy or completeness of information in this document.
[2024-05-22 13:08] LABS: Age Gdln ACOG Testing Note (.); IGP, rfx Aptima HPV ASCU Note (.)
== END 2024-05-17 12:29 | disposition home or self-care (01) ==
LOC: LAB 12:28
PROVIDERS: Visit Provider Nurse Practitioner Family
DX: Z01.419 Encounter for gynecological examination (general) (routine) without abnormal findings (principal)
CPT/HCPCS: 88175